=== PATIENT | female | born 1975 | race Caucasian/White ===

== ENCOUNTER 2022-07-05 09:19 | Emergency (ER) | payer MEDICAID ==
[~2022-07-05] VITALS: Ht 160 cm; Wt 54.5 kg
[2022-07-05 09:37] VITALS: BP 116/75
[2022-07-05] MEDS ORDERED: acetaminophen 325mg tablet PO ONE (11:40)
[2022-07-05] MEDS ORDERED: BEBTELOVIMAB 175 MG/2 ML VIAL IV ONE (13:45)
[2022-07-05] MEDS ORDERED: ondansetron 4mg rapidly disintigrating tab PO ONE (14:10)
[2022-07-05] MEDS ORDERED: normal saline 1000ml 1,000 ML IV ONE (14:10)
== END 2022-07-05 15:55 | disposition home or self-care (01) ==
LOC: ER 09:21
DX: U07.1 COVID-19 (principal); J02.9 Acute pharyngitis, unspecified; R51.9 Headache, unspecified; Z95.0 Presence of cardiac pacemaker
CPT/HCPCS: 71045; 87081; 87635; 87880; 96360; 99284; C9803; J7030; M0222; Q0222

== ENCOUNTER 2024-01-25 09:26 | Emergency (ER) | payer MEDICAID ==
[~2024-01-25] VITALS: Ht 160 cm; Wt 55.6 kg
[2024-01-25 09:36] VITALS: TEMP 98
[2024-01-25 09:58] VITALS: O2SAT 95
[2024-01-25 11:37] LABS: BASOPHILS % (AUTO) 0.5 % (0-1); EOSINOPHILS % (AUTO) 0.4 % (0-6); HEMATOCRIT 42.1 % (35.0-45.0); HEMOGLOBIN 14.5 g/dl (12.0-16.0); LYMPHOCYTES # (AUTO) 0.6 X10'3 (1.1-4.8); LYMPHOCYTES % (AUTO) 8.1 % (21-51); MEAN CORPUSCULAR HEMOGLOBIN 32.1 PG (27.0-31.0); MEAN CORPUSCULAR HGB CONC 34.4 g/dL (33.0-36.5); MEAN CORPUSCULAR VOLUME 93.3 FL (78-98); MONOCYTES # (AUTO) 0.4 X10'3 (0-0.9); MONOCYTES % (AUTO) 4.9 % (2-12); NEUTROPHILS # (AUTO) 6.3 X10'3 (1.8-7.7); NEUTROPHILS % (AUTO) 86.1 % (42-75); PLATELET COUNT 227 X10'3 (140-440); RED BLOOD COUNT 4.51 X10'6 (4.20-5.60); WHITE BLOOD COUNT 7.3 X10'3 (4.5-11.0)
[2024-01-25 11:48] LABS: ALANINE AMINOTRANSFERASE 15 U/L (12-78); ALBUMIN/GLOBULIN RATIO 1.1 (1.1-1.5); ALKALINE PHOSPHATASE 40 IU/L (46-116); ANION GAP 4 (8-16); ASPARTATE AMINO TRANSFERASE 16 U/L (10-37); BILIRUBIN,TOTAL 0.5 MG/DL (0.1-1.0); BLOOD UREA NITROGEN 9 MG/DL (7-18); BUN/CREATININE RATIO 13.8 (10.0-20.0); CALCIUM 8.5 MG/DL (8.5-10.1); CHLORIDE 102 MMOL/L (99-107); CREATININE 0.65 MG/DL (0.40-0.90); GLUCOSE 83 MG/DL (70-104); POTASSIUM 3.7 MMOL/L (3.5-5.1); SODIUM 137 MMOL/L (135-145); TOTAL CARBON DIOXIDE 30.9 MMOL/L (24-32); TOTAL PROTEIN 7.5 G/DL (6.4-8.2); eCRCL 86 ML/MIN; eGFR > 90 ML/MIN
[2024-01-25 11:54] LABS: PRO BRAIN NATRIURETIC PEPTIDE 141 PG/ML (0-125)
[2024-01-25 11:56] LABS: PRO BRAIN NATRIURETIC PEPTIDE 142 PG/ML (0-125)
[2024-01-25 12:17] VITALS: BP 116/69; PULSE 64; RESP 17
== END 2024-01-25 12:43 | disposition home or self-care (01) ==
LOC: ER 09:26
DX: R00.0 Tachycardia, unspecified (principal); R42 Dizziness and giddiness; Z95.0 Presence of cardiac pacemaker; Z72.89 Other problems related to lifestyle
CPT/HCPCS: 36415; 71045; 80053; 83880; 84484; 85025; 93005; 99285